=== PATIENT | female | born 1985 | race Caucasian/White ===

== ENCOUNTER 2024-01-28 16:38 | Outpatient (CLI) | payer MEDICAID, SELFPAY ==
[2024-01-28 16:54] VITALS: BMI 26.2
--- NOTE | 2024-01-28 17:11 | USR_ITS ---
PROCEDURE INFORMATION: Exam: US , Limited Exam date and time: 01/28/2024 5:28 PM Age: 38 years old Clinical indication: Pain; Other: Cramping/bleeding; Gestational age or lmp: 25; ; Additional info: Bleeding cramping, placental placement. gestation LABS AND CLINICAL REPORTS: Last menstrual period start date: 08/09/2023 Gestational age (Established): 24 w 4 d Estimated due date (Established): 05/15/2024 TECHNIQUE: Imaging protocol: Real-time ultrasound of the maternal uterus with image documentation. Exam focused on the clinical indication. COMPARISON: No relevant prior studies available. FINDINGS: Gestation: Single intrauterine gestation (appearing female gestation) in the cephalic presentation. heart rate: 167 bpm Placenta: Posterior and unremarkable. No previa. Amniotic fluid (Qualitative): Maximum vertical pocket of amniotic fluid measures 4.9 cm. BIOMETRY: Estimated due date (AUA): 05/13/2024 Estimated weight: 740.2 g. 52.7 percentile Biparietal diameter (BPD): 6.07 cm. EGA (BPD) is 24 w 5 d. 47.5 % percentile Head circumference (HC): 23.03 cm. EGA (HC) is 25 w 0 d. 48.4 % percentile Abdominal circumference (AC): 20.33 cm. EGA (AC) is 25 w 0 d. 52.8 % percentile Femur length (FL): 4.45 cm. EGA (FL) is 24 w 5 d. 39.6 % percentile HC/AC: 1.13. (Normal range: 1.04 - 1.22) FL/HC: 19.32. (Normal range: 18.7 - 20.39) FL/BPD: 73.31. (Normal range: 71 - 87) FL/AC: 21.89. (Normal range: 20 - 24) MATERNAL: Cervix: Cervical length measures 4 cm. Other findings: Average ultrasound age: 24 weeks 6 days US/US OB limited [id number] IMPRESSION: Single intrauterine in the cephalic presentation as noted above. Posterior placenta, appearing unremarkable.
[2024-01-28 17:28] VITALS: BP 121/77; PULSE 78
[2024-01-28 17:48] VITALS: BP 117/72; PULSE 71
[2024-01-28 17:49] LABS: Bilirubin Urine Negative (Negative); Blood Urine 3+ (Negative); Glucose Urine UA Negative (Normal); Ketones Urine Negative (Negative); Leukocyte Esterase Urine Trace (Negative); Nitrate Urine Negative (Negative); Protein Urine Trace (Negative); Specific Gravity, Urine 1.015 (1.005-1.030); Urine Appearance Clear (CLEAR); Urine Color Yellow (Yellow); Urobilinogen Urine 0.2 mg/dL (Negative); pH Urine 6.5 (5-7)
[2024-01-28 17:50] LABS: Amphetamines Screen Urine Negative (Negative); Barbiturates Screen Urine Negative (Negative); Benzodiazepines Screen Urine Negative (Negative); Cocaine Screen Urine Negative (Negative); Opiate Screen Urine Negative (Negative); PCP Screen Urine Negative (Negative); THC Screen Urine Negative (Negative)
[2024-01-28 17:52] LABS: Add Urine Microscopic? YES; Bacteria Urine None Seen /hpf; Hyaline Casts Urine 0.81 /lpf; RBC Urine 0-2 /hpf (0-2); WBC Urine 0-5 /hpf (0-5)
[2024-01-28 18:01] LABS: Add Urine Culture? No
[2024-01-28 18:08] VITALS: BP 115/74; PULSE 72
[2024-01-28 18:28] VITALS: BP 113/74; PULSE 71
== END 2024-01-28 19:03 | disposition home or self-care (01) ==
LOC: LAB 16:42 → OPOB 16:48 → OBGYN 17:15
PROVIDERS: Visit Provider Family Medicine
DX: O46.90 Antepartum hemorrhage, unspecified, unspecified trimester (principal); Z3A.00 Weeks of gestation of pregnancy not specified; R10.9 Unspecified abdominal pain
CPT/HCPCS: 76801; 76815; 80306; 81001; 99211